=== PATIENT | female | born 1995 | race Caucasian/White ===

== ENCOUNTER 2024-03-30 16:04 | Emergency (ER) | payer OTHER ==
[~2024-03-30] VITALS: Ht 165.1 cm; Wt 93.7 kg
[2024-03-30 16:21] VITALS: BP 116/69; PULSE 80; RESP 16; TEMP 98.2; O2SAT 98
[2024-03-30 17:09] LABS: BASOPHILS # (AUTO) 0.1 K/uL (0.00-0.22); BASOPHILS % (AUTO) 0.6 % (0.0-2.0); EOSINOPHILS # (AUTO) 0.1 K/uL (0-0.4); EOSINOPHILS % (AUTO) 0.6 % (0.0-4.0); HEMATOCRIT 36.7 % (36-48); HEMOGLOBIN 12.1 g/dL (12.0-16.0); LYMPHOCYTES # (AUTO) 3.3 K/uL (2.5-16.5); LYMPHOCYTES % (AUTO) 33.8 % (20.5-51.1); MEAN CORPUSCULAR HEMOGLOBIN 25 pg (27-31); MEAN CORPUSCULAR HGB CONC 33 g/dL (33-37); MEAN CORPUSCULAR VOLUME 76.3 fL (80-94); MONOCYTES # (AUTO) 0.5 K/uL (0.8-1.0); NEUTROPHILS # (AUTO) 5.8 K/uL (1.8-7.7); PLATELET COUNT (AUTO) 297 K/uL (140-450); RED CELL DISTRIBUTION WIDTH 14.2 % (11.6-13.7); WHITE BLOOD COUNT (AUTO) 9.7 K/uL (4.8-10.8)
[2024-03-30 17:31] LABS: ANION GAP 10.6 (8-16); CARBON DIOXIDE 26.8 mmol/L (21-32); CREATININE 0.9 mg/dL (0.6-1.3); POTASSIUM 3.4 mmol/L (3.5-5.1)
[2024-03-30 17:49] LABS: THYROID STIMULATING HORMONE 0.95 uIU/mL (0.34-3.74)
[2024-03-30 18:04] VITALS: BP 109/69; PULSE 70; RESP 23; TEMP 98.2; O2SAT 100
[2024-03-30] MEDS: ACETAMINOPHEN EXTRA STRENGTH 500 MG TAB PO ONE (18:08)
[2024-03-30] MEDS: KETOROLAC 30 MG/ML VIAL IM ONE (18:10)
== END 2024-03-30 18:04 | disposition home or self-care (01) ==
LOC: MED 16:04
DX: R00.2 Palpitations (principal); F41.9 Anxiety disorder, unspecified
CPT/HCPCS: 36415; 71045; 80048; 81025; 84443; 84484; 85025; 93005; 96372; 99285; J1885